=== PATIENT | male | born 1975 | race Caucasian/White ===

== ENCOUNTER 2019-12-27 15:34 | Emergency (ER) | payer BC ==
[2019-12-27 15:50] VITALS: BP 128/103; PULSE 82
--- NOTE | 2019-12-27 15:57 | EDM.PDOC ---
ED HPI GENERAL MEDICAL PROBLEM - General Chief Complaint: ENT Problem Stated Complaint: R EAR PAIN Time Seen by Provider: 12/27/19 15:47 Source of Information: Reports: Patient History Limitations: Reports: No Limitations - History of Present Illness INITIAL COMMENTS - FREE TEXT/NARRATIVE: The patient presents with right ear pain and sore throat. This started yesterday and it is much worse today. He has no fever that he can tell. He has no cough, congestion, runny nose, chest pain, shortness of breath, abdominal pain, nausea or vomiting. Onset: Gradual Duration: Day(s): Location: Reports: Other (throat and right ear) Quality: Reports: Sharp Severity: Moderate Improves with: Reports: None Worsens with: Reports: None Associated Symptoms: Reports: No Other Symptoms Right Ear Pain Score (Numeric/FACES): 5 - Related Data Allergies Allergy/AdvReac Type Severity Reaction Status Date / Time Penicillins Allergy Rash Verified 12/27/19 15:47 Home Meds: Home Meds Cephalexin [Keflex] 500 mg PO BID #20 capsule 12/27/19 [Rx] Past Medical History HEENT History: Reports: Impaired Vision Other HEENT History: wears contacts Cardiovascular History: Reports: Arrhythmia Other Cardiovascular History: Unknown what type of arrhythmia - Infectious Disease History Infectious Disease History: Reports: Chicken Pox ED ROS ENT - Review of Systems Review Of Systems: See Below Constitutional: Reports: No Symptoms HEENT: Reports: Ear Pain (right), Throat Pain Respiratory: Reports: No Symptoms Cardiovascular: Reports: No Symptoms Endocrine: Reports: No Symptoms GI/Abdominal: Reports: No Symptoms : Reports: No Symptoms Musculoskeletal: Reports: No Symptoms ED EXAM, ENT - Physical Exam Exam: See Below Exam Limited By: No Limitations General Appearance: Alert, No Apparent Distress Ears: Normal External Exam, Normal Canal, TM Erythema (right mild), TM Fluid ( right mild) Nose: Normal Inspection Mouth/Throat: Pharyngeal Erythema Head: Atraumatic, Normocephalic Neck: Lymphadenopathy (R). No: Lymphadenopathy (L) Respiratory/Chest: No Respiratory Distress, Lungs Clear, Normal Breath Sounds Cardiovascular: Regular Rate, Rhythm, No Edema, No Murmur GI/Abdominal: Soft, Non-Tender, No Organomegaly, No Mass Extremities: Normal Inspection Course - Vital Signs Last Recorded V/S: Last Vital Signs Temp 97.6 F 12/27/19 15:48 Pulse 82 12/27/19 15:48 Resp 16 12/27/19 15:48 BP 128/103 H 12/27/19 15:48 Pulse Ox 100 12/27/19 15:48 Departure - Departure Time of Disposition: 15:55 Disposition: Home, Self-Care 01 Condition: Good Clinical Impression: Otitis media Qualifiers: Otitis media type: suppurative Chronicity: acute Laterality: right Recurrence: non-recurrent Spontaneous tympanic membrane rupture: without spontaneous rupture Qualified Code(s): H66.001 - Acute suppurative otitis media without spontaneous rupture of ear drum, right ear Pharyngitis Qualifiers: Pharyngitis/tonsillitis etiology: streptococcus Qualified Code(s): J02.0 - Streptococcal pharyngitis - Discharge Information *PRESCRIPTION DRUG MONITORING PROGRAM REVIEWED*: Not Applicable *COPY OF PRESCRIPTION DRUG MONITORING REPORT IN PATIENT LARS: Not Applicable Prescriptions: Cephalexin [Keflex] 500 mg PO BID #20 capsule Referrals: PCP,None [Primary Care Provider] - Forms: ED Department Discharge Additional Instructions: Take the keflex 2 times per day for 10 days. Take tylenol or motrin for any pain. Drink plenty of water. Please return if you are worse. Sepsis Event Note - Evaluation Sepsis Screening Result: No Definite Risk - Focused Exam Vital Signs: Vital Signs Temp Pulse Resp BP Pulse Ox 12/27/19 15:48 97.6 F 82 16 128/103 H 100 Date Exam was Performed: 12/27/19 Time Exam was Performed: 16:02
== END 2019-12-27 16:10 | disposition home or self-care (01) ==
LOC: JD.ED 15:34
DX: H66.001 Acute suppurative otitis media without spontaneous rupture of ear drum, right ear (principal); J02.0 Streptococcal pharyngitis; Z88.0 Allergy status to penicillin
CPT/HCPCS: 99282; 99283

== ENCOUNTER 2020-12-28 02:02 | Emergency (ER) | payer BC ==
[2020-12-28] MEDS ORDERED: EPINEPHrine 1 MG/ML SDV SUBCUT ONE (02:49)
[2020-12-28] MEDS ORDERED: methylPREDNISolone Sodium Succinate 125 MG/2 ML SDV IVPUSH ONE (02:50)
[2020-12-28] MEDS ORDERED: Famotidine 20 MG/2 ML SDV IVPUSH STA (02:50)
[2020-12-28] MEDS ORDERED: diphenhydrAMINE 50 MG/ML SDV IVPUSH ONE (02:51)
--- NOTE | 2020-12-28 03:06 | EDM.PDOC ---
ED HPI GENERAL MEDICAL PROBLEM - General Chief Complaint: ENT Problem Stated Complaint: TONGUE SWOLLEN Time Seen by Provider: 12/28/20 02:33 Source of Information: Reports: Patient History Limitations: Reports: No Limitations - History of Present Illness INITIAL COMMENTS - FREE TEXT/NARRATIVE: Mr. Parra is a very pleasant 45-year-old gentleman who now presents the ED with tongue swelling. He states that he has had cold-like symptoms for the past couple of days, and took some ibuprofen, along with some OTC cough drops, around 20:00 last night. He states that he then awoke around 01:15 this morning with an itchy sensation to the right side of his tongue. He scratched it on his teeth for a while, then got up, looked in the mirror, and saw that the right side of his tongue was swollen. Since that time, the left side of his tongue has also become swollen, and is now itchy, while the itchiness to the right side of his tongue has resolved. No prior similar symptoms. The patient did not take any phlk-bvp-qyiprtx or home remedies since 20:00. Here in the ED, the patient's initial BP is found to be elevated at 163/113, otherwise, he is hemodynamically stable, afebrile, saturating 96% on room air. Other than 2 days of mild cold-like symptoms, the patient denies having a recent fever, chills, sore throat, ear pain, nasal or sinus congestion, cough, dyspnea, chest pain, palpitations, nausea, vomiting, constipation, diarrhea, abdominal pain, urinary symptoms, recent weight gain or weight loss, recent bloody bowel movements or black bowel movements, recent joint aches, headaches, or rashes. The patient does not have a PCP. - Related Data Allergies Allergy/AdvReac Type Severity Reaction Status Date / Time Penicillins Allergy Rash Verified 12/28/20 02:07 Home Meds: Home Meds predniSONE [Prednisone] 1 tab PO QAM #5 tablet 12/28/20 [Rx] Past Medical History HEENT History: Reports: Impaired Vision (wears contacts) Endocrine/Metabolic History: Reports: Obesity/BMI 30+ - Infectious Disease History Infectious Disease History: Reports: Chicken Pox Social & Family History - Tobacco Use Tobacco Use Status *Q: Former Tobacco User Years of Tobacco use: 11 Packs/Tins Daily: 1 Month/Year Tobacco Last Used: Quit 2003 Tobacco Use Comment: Started smoking at 17 yrs old - Alcohol Use Alcohol Use History: No - Recreational Drug Use Recreational Drug Use: Yes Drug Use in Last 12 Months: No Recreational Drug Type: Reports: Cocaine (last snorted around 1995), Marijuana/Hashish (last smoked around 1995) - Living Situation & Occupation Living situation: Reports: , with Spouse, with Family (6 kids) Occupation: Employed (Contractor) ED ROS ENT - Review of Systems Review Of Systems: Comprehensive ROS is negative, except as noted in HPI. ED EXAM, ENT - Physical Exam Exam: See Below Exam Limited By: No Limitations General Appearance: Alert, WD/WN, No Apparent Distress Eye Exam: Bilateral Eye: EOMI, Normal Inspection Ears: Normal External Exam, Normal Canal, Hearing Grossly Normal, Normal TMs Nose: Normal Inspection, No Blood, Nasal Swelling (left > right) Mouth/Throat: Normal Gums, Normal Lips, Normal Teeth, Other (Large, symmetric glossitis with Mallampati score III - the uvula is still clearly visible, and appears to be mildly edematous.) Head: Atraumatic, Normocephalic Neck: Normal Inspection, Supple, Non-Tender, Full Range of Motion. No: Lymphadenopathy (L), Lymphadenopathy (R) Respiratory/Chest: No Respiratory Distress, Lungs Clear, Normal Breath Sounds, No Accessory Muscle Use. No: Decreased Breath Sounds, Crackles, Rhonchi, Wheezing, Stridor, Prolonged Expiration Cardiovascular: Normal Peripheral Pulses, Regular Rate, Rhythm, No Edema, No Gallop, No JVD, No Murmur, No Rub GI/Abdominal: Normal Bowel Sounds, Soft, Non-Tender, No Organomegaly, No Distention, No Abnormal Bruit, No Mass Back: Normal Inspection, Full Range of Motion Extremities: Normal Inspection, Normal Range of Motion, No Pedal Edema, Normal Capillary Refill Neurological: Alert, Oriented, Normal Cognition, No Motor/Sensory Deficits Psychiatric: Normal Affect Skin: Warm, Dry, Intact, Normal Color, No Rash Course - Vital Signs Last Recorded V/S: Last Vital Signs Temp 35.9 C L 12/28/20 02:07 Pulse 91 12/28/20 02:07 Resp 18 12/28/20 02:07 BP 163/113 H 12/28/20 02:07 Pulse Ox 96 12/28/20 02:07 - Orders/Labs/Meds Meds: Medications Discontinued Medications Generic Name Dose Route Start Last Admin Trade Name Jackson PRN Reason Stop Dose Admin Diphenhydramine HCl 50 mg 12/28/20 02:51 12/28/20 03:00 Diphenhydramine 50 Mg/Ml Sdv IVPUSH 12/28/20 02:52 50 mg ONETIME ONE Administration Epinephrine HCl 0.3 mg 12/28/20 02:49 12/28/20 03:00 Epinephrine 1 Mg/Ml Sdv SUBCUT 12/28/20 02:50 0.3 mg ONETIME ONE Administration Famotidine 40 mg 12/28/20 02:50 12/28/20 02:57 Famotidine 20 Mg/2 Ml Sdv IVPUSH 12/28/20 02:51 40 mg ONETIME STA Administration Methylprednisolone Sodium Succinate 125 mg 12/28/20 02:50 12/28/20 03:02 Methylprednisolone Sodium Succinate 125 Mg/2 Ml Sdv IVPUSH 12/28/20 02:51 125 mg ONETIME ONE Administration - Re-Assessments/Exams Free Text/Narrative Re-Assessment/Exam: 12/28/20 02:53 As above, the patient woke with an itchy tongue around 01:15 this morning, and while he was scratching it on his teeth, he noticed that the right side of his tongue became swollen. Since then, the left side of his tongue has become swollen, and while the itchiness to the right side has resolved, he states that the left side of his tongue is currently swollen. On examination, the patient has significant glossitis, and very mild uvular edema. No lip swelling. No airway compromise at this time. No dyspnea or wheezing. No urticaria or pruritus. I have ordered epinephrine 0.3 mg to be given subcutaneously, along with Solu-Medrol 125 mg to be given IVP, along with diphenhydramine 50 mg to be given IVP, and famotidine 40 mg to be given IVP. If his symptoms do not begin to improve soon, or if they worsen even a little, protective intubation will need to be considered. 12/28/20 03:06 In the event that we need to intubate the patient, I notified the [facility] at 03:03 of the situation. If called upon, he can be here within 5 minutes. 12/28/20 03:17 The patient has been moved to Trauma Room 2 in case he needs to be intubated. He states that his tongue feels a little less swollen, that he can move it around in his mouth a little better. On examination, I agree, that the tongue appears to be slightly smaller. Additionally, the uvular edema appears to be less, as well. 12/28/20 03:52 I reevaluated the patient. His glossitis has continued to improve. His full uvula is now easily visible. 12/28/20 04:22 I reevaluated the patient. His glossitis appears to be about the same as the last time I evaluated him. 12/28/20 05:10 I reevaluated the patient. There is obvious improvement in his glossitis. His tongue is still larger than normal, but has significantly improved. 12/28/20 06:36 I reevaluated the patient. His glossitis has continued to improve. His tongue is currently larger than normal, but I believe he is well enough to be able to be discharged home. I will submit a prescription for prednisone for the next 5 days, and he can take fccu-rzk-[id number] Zyrtec, which he states he ordinarily does during the summer, anyway. I will refer him to an Floriculture Teacher in [place]. Departure - Departure Time of Disposition: 06:37 Disposition: Home, Self-Care 01 Condition: Good Clinical Impression: Glossitis - Discharge Information *PRESCRIPTION DRUG MONITORING PROGRAM REVIEWED*: Not Applicable *COPY OF PRESCRIPTION DRUG MONITORING REPORT IN PATIENT LARS: Not Applicable Referrals: PCP,None [Primary Care Provider] - Karma Elaine MD [Ordering Only Provider] - Forms: ED Department Discharge Additional Instructions: You were seen in the emergency room after your tongue became itchy and significantly swollen. Based on your history and physical examination, you were suffering from an allergic reaction, most likely to ibuprofen. Your symptoms improved after you were given epinephrine, IV Solu-Medrol (a steroid), IV diphenhydramine (Benadryl), and IV famotidine (Pepcid). Going forward, it is very important that you avoid all NSAIDs, including aspirin, ibuprofen (Advil, Motrin), and naproxen (Aleve), unless cleared to do so by an switchboard installer. A prescription for the steroid prednisone has been sent to the [facility], located in the [facility] grocery store. Take 1 tablet of prednisone every morning, starting tomorrow morning, 12/29/2020, as prescribed. In addition to prednisone, we recommend that you take an jygr-hpu-comeswn non- sedating antihistamine, such as Zyrtec, daily, starting today. Follow-up with the Floriculture Teacher Dr. Karma Elaine, in [place], at the next available appointment. Make sure that the church official understands that you are following up from the ER. If any other problems, please do not hesitate to return to the ER. Sepsis Event Note (ED) - Evaluation Sepsis Screening Result: No Definite Risk - Focused Exam Vital Signs: Vital Signs Temp Pulse Resp BP Pulse Ox 12/28/20 02:07 35.9 C L 91 18 163/113 H 96
[2020-12-28 06:52] VITALS: BP 108/70; PULSE 88
== END 2020-12-28 06:51 | disposition home or self-care (01) ==
LOC: JD.ED 02:02
DX: K14.0 Glossitis (principal); E66.9 Obesity, unspecified; Z68.34 Body mass index [BMI] 34.0-34.9, adult; Z87.891 Personal history of nicotine dependence; Z88.0 Allergy status to penicillin
CPT/HCPCS: 96372; 96374; 96375; 99283; J0171; J1200; J2930; J3490; 99284

== ENCOUNTER 2021-02-09 08:27 | Emergency (ER) | payer BC ==
--- NOTE | 2021-02-09 08:38 | EDM.PDOC ---
ED HPI GENERAL MEDICAL PROBLEM - General Chief Complaint: Allergic Reaction Stated Complaint: ALLERGIC REACTION/SKIN COMPLAINT Time Seen by Provider: 02/09/21 08:38 - History of Present Illness INITIAL COMMENTS - FREE TEXT/NARRATIVE: 45-year-old male presents the emergency room with tongue swelling. Around 730 this morning the patient developed a rash on his left anterior thigh. Later this morning he developed some tongue swelling on the left side. This reminded him of allergic reaction he had earlier this month. It is thought he is allergic to ibuprofen now. The patient has been seen by an employee benefits attorney however testing cannot be done because of all the medications he had in his system from his last visit here to the emergency room. The patient has not had any breathing difficulties or shortness of breath. The patient did take 2 Benadryl and the rash is doing much better and his tongue seems to be doing quite a bit better. The patient does carry EpiPen's but did not think he needed to use them today, and I agree with his decision. He is not having any breathing difficulties shortness of breath throat tightness. - Related Data Allergies Allergy/AdvReac Type Severity Reaction Status Date / Time ibuprofen Allergy Swelling Verified 02/09/21 08:39 Penicillins Allergy Rash Verified 12/28/20 02:07 Home Meds: Home Meds . [No Known Home Meds] 02/09/21 [History] Past Medical History HEENT History: Reports: Impaired Vision (wears contacts) Other HEENT History: wears contacts Cardiovascular History: Reports: Arrhythmia Other Cardiovascular History: Unknown what type of arrhythmia Endocrine/Metabolic History: Reports: Obesity/BMI 30+ - Infectious Disease History Infectious Disease History: Reports: Chicken Pox Social & Family History - Living Situation & Occupation Living situation: Reports: , with Spouse, with Family (6 kids) Occupation: Employed (Contractor) ED ROS ALLERGIC REACTION - Review of Systems Review Of Systems: See Below Constitutional: Reports: No Symptoms HEENT: Reports: No Symptoms, Other (Left-sided tongue swelling). Denies: Throat Swelling Respiratory: Reports: No Symptoms Cardiovascular: Reports: No Symptoms GI/Abdominal: Reports: No Symptoms ED EXAM GENERAL NO PERIP PULSE - Physical Exam Exam: See Below Exam Limited By: No Limitations General Appearance: Alert, No Apparent Distress Ears: Normal External Exam, Normal Canal, Hearing Grossly Normal, Normal TMs Nose: Normal Inspection, Normal Mucosa, No Blood Throat/Mouth: Normal Inspection, Normal Lips, Normal Teeth, Normal Gums, Normal Oropharynx, Normal Voice, No Airway Compromise, Other (Left side of the tongue is minimally swollen at this time) Head: Atraumatic, Normocephalic Neck: Normal Inspection, Supple, Non-Tender, Full Range of Motion Respiratory/Chest: No Respiratory Distress, Lungs Clear, Normal Breath Sounds Cardiovascular: Regular Rate, Rhythm, No Edema, No Murmur Skin Exam: Other (He has what looks like hives but these are localized to the anterior hip area. Patient states this looks much better than it did earlier today.) Course - Vital Signs Last Recorded V/S: Last Vital Signs Temp 36.4 C 02/09/21 08:37 Pulse 84 02/09/21 08:37 Resp 16 02/09/21 08:37 BP 148/78 H 02/09/21 08:37 Pulse Ox 97 02/09/21 08:37 - Re-Assessments/Exams Free Text/Narrative Re-Assessment/Exam: 02/09/21 09:03 Patient seems to be having a favorable response to the Benadryl we will wait and observe and see how he does. 02/09/21 10:00 Patient is doing much better his tongue is back to normal his rashes 80% better. The patient really wants to get going we will discharge. Departure - Departure Time of Disposition: 10:00 Disposition: Home, Self-Care 01 Clinical Impression: Hives of unknown origin, Tongue swelling - Discharge Information Forms: ED Department Discharge Additional Instructions: Return to the emergency room with any questions problems or worsening symptoms. Continue to use the Benadryl 25 mg 4 times a day for the next 24 hours and then as needed. Consider using famotidine, or Pepcid as it does not cause sedation and will often work faster than the Benadryl with less sedation and side effects. Take 1 or 2 at the onset of symptoms and then 1 twice daily for several days. Follow-up with your employee benefits attorney as scheduled. Sepsis Event Note (ED) - Focused Exam Vital Signs: Vital Signs Temp Pulse Resp BP Pulse Ox 02/09/21 08:37 36.4 C 84 16 148/78 H 97
[2021-02-09 08:39] VITALS: BP 148/78; PULSE 84
== END 2021-02-09 10:10 | disposition home or self-care (01) ==
LOC: JD.ED 08:27
DX: L50.9 Urticaria, unspecified (principal); K14.8 Other diseases of tongue; E66.9 Obesity, unspecified; Z68.34 Body mass index [BMI] 34.0-34.9, adult; Z88.6 Allergy status to analgesic agent; Z88.0 Allergy status to penicillin
CPT/HCPCS: 99282; 99283

== ENCOUNTER 2022-03-16 23:43 | Emergency (ER) | payer BC ==
[2022-03-17] MEDS ORDERED: Famotidine 20 MG/2 ML SDV IVPUSH ONE (00:01)
[2022-03-17] MEDS ORDERED: diphenhydrAMINE 50 MG/ML SDV IVPUSH ONE (00:01)
[2022-03-17] MEDS ORDERED: diphenhydrAMINE 50 MG/ML SDV ONE (00:05)
[2022-03-17] MEDS ORDERED: Famotidine 20 MG/2 ML SDV ONE (00:06)
[2022-03-17] MEDS ORDERED: Sodium Chloride 0.9% 10 ML Syringe FLUSH PRN (02:17)
[2022-03-17] MEDS ORDERED: Iopamidol 612 MG/ML 100 ML Bottle IVPUSH ONE (02:17)
[2022-03-17] MEDS ORDERED: methylPREDNISolone Sodium Succinate 125 MG/2 ML SDV IVPUSH ONE (03:05)
[2022-03-17] MEDS ORDERED: methylPREDNISolone Sodium Succinate 125 MG/2 ML SDV ONE (03:13)
[2022-03-17 03:45] LABS: ESTIMATED GFR 110 mL/min (>60)
[2022-03-17] MEDS ORDERED: EPINEPHrine 1 MG/ML SDV IM ONE (07:16)
[2022-03-17] MEDS ORDERED: EPINEPHrine 1 MG/ML SDV ONE (07:39)
[2022-03-17 07:53] VITALS: BP 119/91; PULSE 90
== END 2022-03-17 08:45 | disposition home or self-care (01) ==
LOC: JD.ED 23:43
DX: T78.3XXA Angioneurotic edema, initial encounter (principal); E66.9 Obesity, unspecified; Z88.8 Allergy status to other drugs, medicaments and biological substances; Z88.0 Allergy status to penicillin; Z68.34 Body mass index [BMI] 34.0-34.9, adult
CPT/HCPCS: 36415; 70491; 80053; 85025; 86140; 96372; 96374; 96375; 99284; J0171; J1200; J2930; J3490; Q9967

== ENCOUNTER 2022-04-16 08:38 | Emergency (ER) | payer BC ==
[2022-04-16 08:49] VITALS: BP 145/98; PULSE 95
[2022-04-16] MEDS ORDERED: predniSONE 20 MG Tab PO STA (09:49)
== END 2022-04-16 10:06 | disposition home or self-care (01) ==
LOC: JD.ED 08:38
DX: T78.3XXA Angioneurotic edema, initial encounter (principal); Z88.0 Allergy status to penicillin; Z88.8 Allergy status to other drugs, medicaments and biological substances
CPT/HCPCS: 99283; J7512

== ENCOUNTER 2022-04-24 14:03 | Emergency (ER) | payer BC ==
[2022-04-24 14:47] VITALS: BP 140/93; PULSE 96
[2022-04-24] MEDS ORDERED: methylPREDNISolone Sodium Succinate 125 MG/2 ML SDV IM ONE (15:04)
== END 2022-04-24 15:30 | disposition home or self-care (01) ==
LOC: JD.ED 14:03
DX: F45.8 Other somatoform disorders (principal); E66.9 Obesity, unspecified; Z88.0 Allergy status to penicillin; Z88.8 Allergy status to other drugs, medicaments and biological substances; Z68.35 Body mass index [BMI] 35.0-35.9, adult
CPT/HCPCS: 96372; 99282; 99283; J2930

== ENCOUNTER 2022-04-24 21:00 | Emergency (ER) | payer BC ==
[2022-04-24] MEDS ORDERED: EPINEPHrine 1 MG/ML SDV IM ONE (22:20)
[2022-04-24] MEDS ORDERED: Alum Hydrox/Mag Hydrox/Simeth 30 ML, Lidocaine 2% 15 ML PO ONE ×2 (22:20)
[2022-04-24 23:21] VITALS: BP 141/74; PULSE 88
== END 2022-04-24 23:25 | disposition home or self-care (01) ==
LOC: JD.ED 21:00
DX: K14.0 Glossitis (principal); F45.8 Other somatoform disorders; E66.9 Obesity, unspecified; Z68.34 Body mass index [BMI] 34.0-34.9, adult; Z79.899 Other long term (current) drug therapy
CPT/HCPCS: 96372; 99283; A9270; J0171; J2930

== ENCOUNTER 2022-07-04 00:22 | Emergency (ER) | payer BC ==
[2022-07-04] MEDS ORDERED: Sodium Chloride 0.9% 10 ML Syringe FLUSH PRN (00:52)
[2022-07-04] MEDS ORDERED: Famotidine 20 MG/2 ML SDV IVPUSH ONE (00:53)
[2022-07-04] MEDS ORDERED: methylPREDNISolone Sodium Succinate 125 MG/2 ML SDV IVPUSH ONE (00:53)
[2022-07-04] MEDS ORDERED: diphenhydrAMINE 50 MG/ML SDV IVPUSH ONE (00:53)
[2022-07-04 02:49] VITALS: BP 129/78; PULSE 80
== END 2022-07-04 02:48 | disposition home or self-care (01) ==
LOC: JD.ED 00:22
DX: T78.3XXA Angioneurotic edema, initial encounter (principal); E66.9 Obesity, unspecified; Z68.38 Body mass index [BMI] 38.0-38.9, adult; Z88.6 Allergy status to analgesic agent; Z88.0 Allergy status to penicillin; Z79.899 Other long term (current) drug therapy
CPT/HCPCS: 96374; 96375; 99283; J1200; J2930; J3490

== ENCOUNTER 2022-07-07 16:05 | Emergency (ER) | payer BC ==
[2022-07-07 16:49] VITALS: BP 143/102; PULSE 82
[2022-07-07] MEDS ORDERED: methylPREDNISolone Sodium Succinate 125 MG/2 ML SDV IVPUSH ONE (17:30)
== END 2022-07-07 19:25 | disposition home or self-care (01) ==
LOC: JD.ED 16:05
DX: L50.1 Idiopathic urticaria (principal); E66.9 Obesity, unspecified; Z68.37 Body mass index [BMI] 37.0-37.9, adult; Z88.6 Allergy status to analgesic agent; Z88.0 Allergy status to penicillin; Z79.899 Other long term (current) drug therapy
CPT/HCPCS: 36415; 86160; 96374; 99283; J2930

== ENCOUNTER 2022-07-11 16:44 | Emergency (ER) | payer BC ==
[2022-07-11] MEDS ORDERED: Sodium Chloride 0.9% 1,000 ML IV ONE (17:32)
[2022-07-11] MEDS ORDERED: Sodium Chloride 0.9% 10 ML Syringe FLUSH PRN (17:32)
[2022-07-11] MEDS ORDERED: methylPREDNISolone Sodium Succinate 125 MG/2 ML SDV IVPUSH ONE (17:32)
[2022-07-11] MEDS ORDERED: Famotidine 20 MG/2 ML SDV IVPUSH ONE (17:32)
[2022-07-11] MEDS ORDERED: diphenhydrAMINE 50 MG/ML SDV IVPUSH ONE (17:32)
[2022-07-11] MEDS ORDERED: Iopamidol 612 MG/ML 100 ML Bottle IVPUSH ONE (17:41)
[2022-07-11 19:46] VITALS: BP 134/96; PULSE 56
== END 2022-07-11 19:40 | disposition home or self-care (01) ==
LOC: JD.ED 16:44 → SUPCPDRO 16:44 → JD.ED 19:40
DX: T78.40XA Allergy, unspecified, initial encounter (principal); E66.9 Obesity, unspecified; Z68.36 Body mass index [BMI] 36.0-36.9, adult; Z88.6 Allergy status to analgesic agent; Z88.0 Allergy status to penicillin; Z79.899 Other long term (current) drug therapy
CPT/HCPCS: 70491; 96374; 96375; 99284; J1200; J2930; J3490; J7030; Q9967; 99282

== ENCOUNTER 2022-07-15 15:47 | Emergency (ER) | payer BC ==
[2022-07-15 16:03] VITALS: BP 156/98; PULSE 111
[2022-07-15] MEDS ORDERED: diphenhydrAMINE 50 MG/ML SDV IVPUSH ONE (17:20)
[2022-07-15] MEDS ORDERED: Famotidine 20 MG/2 ML SDV IVPUSH ONE (17:20)
[2022-07-15] MEDS ORDERED: methylPREDNISolone Sodium Succinate 125 MG/2 ML SDV IVPUSH ONE (17:20)
[2022-07-15] MEDS ORDERED: LORazepam 2 MG/ML SDV IVPUSH ONE (18:58)
[2022-07-15] MEDS ORDERED: Iopamidol 612 MG/ML 100 ML Bottle IVPUSH ONE (19:23)
== END 2022-07-15 20:43 | disposition home or self-care (01) ==
LOC: JD.ED 15:47
DX: T78.3XXA Angioneurotic edema, initial encounter (principal); R09.89 Other specified symptoms and signs involving the circulatory and respiratory systems; E66.9 Obesity, unspecified; Z68.36 Body mass index [BMI] 36.0-36.9, adult; Z88.6 Allergy status to analgesic agent; Z88.0 Allergy status to penicillin; Z79.899 Other long term (current) drug therapy
CPT/HCPCS: 70491; 96374; 96375; 99283; J1200; J2060; J2930; J3490; Q9967

== ENCOUNTER 2025-03-20 09:36 | Emergency (ER) | payer BC ==
[2025-03-20 10:14] VITALS: BP 137/85; PULSE 65
== END 2025-03-20 13:51 | disposition home or self-care (01) ==
LOC: JD.ED 09:36
DX: I82.422 Acute embolism and thrombosis of left iliac vein (principal); Z88.0 Allergy status to penicillin; Z88.6 Allergy status to analgesic agent; Z79.899 Other long term (current) drug therapy
CPT/HCPCS: 93971-26-LT; 93971-LT; 99283; A9270-GY